=== PATIENT | male | born 1970 | race Two or more races ===

== ENCOUNTER 2017-09-28 11:17 | Emergency (ER) | payer OTHER ==
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
[2017-09-28 12:15] LABS: CHLORIDE,CL 106 mmol/L (98-110); SODIUM,NA 141 mmol/L (136-146)
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
== END 2017-09-28 13:10 | disposition home or self-care (01) ==
LOC: MW.ED 11:17
DX: M62.838 Other muscle spasm (principal); M54.9 Dorsalgia, unspecified; M54.2 Cervicalgia; V89.2XXA Person injured in unspecified motor-vehicle accident, traffic, initial encounter
CPT/HCPCS: 36415; 71010; 72040; 72070; 72170; 80048; 80305; 81001; 84484; 85025; 99284; G0480; 99282